=== PATIENT | male | born 1960 | race Two or more races ===

== ENCOUNTER 2021-12-16 09:10 | Day surgery (SDC) | payer OTHER ==
[2021-12-13 18:17] VITALS: BMI 28.7
[2021-12-16] MEDS ORDERED: PROPOFOL 120 ML ONE (10:04)
[2021-12-16 15:34] VITALS: TEMP 98
[2021-12-16 15:38] VITALS: BP 126/76; PULSE 76; RESP 16
== END 2021-12-16 11:15 | disposition home or self-care (01) ==
LOC: FASU-ENDO 09:10
PROVIDERS: ATTEND Internal Medicine Gastroenterology
PROC: 0DB98ZX Excision of Duodenum, Via Natural or Artificial Opening Endoscopic, Diagnostic (ICD-10-PCS; 2021-12-16)
PROC: 0DB78ZX Excision of Stomach, Pylorus, Via Natural or Artificial Opening Endoscopic, Diagnostic (ICD-10-PCS; 2021-12-16)
PROC: 0DB48ZX Excision of Esophagogastric Junction, Via Natural or Artificial Opening Endoscopic, Diagnostic (ICD-10-PCS; 2021-12-16)
PROC: 0DJD8ZZ Inspection of Lower Intestinal Tract, Via Natural or Artificial Opening Endoscopic (ICD-10-PCS; principal; 2021-12-16 09:57)
DX: Z12.11 Encounter for screening for malignant neoplasm of colon (principal); K21.00 Gastro-esophageal reflux disease with esophagitis, without bleeding; K29.70 Gastritis, unspecified, without bleeding; B96.81 Helicobacter pylori [H. pylori] as the cause of diseases classified elsewhere
CPT/HCPCS: 82962; 88305-TC; 88342-TC